=== PATIENT | female | born 1960 | race Caucasian/White ===

== ENCOUNTER 2016-09-30 10:46 | Day surgery (SDC) | payer OTHER ==
[~2016-09-30] VITALS: Ht 162.6 cm; Wt 65.8 kg
[~2016-09-30 10:46] MED LIST: 0.9% Sodium Chloride 1,000 ML IV PRN; META-1 PO; Sodium Chloride LOK Flush 10 mL Syringe IV PRN; VENL75CA PO; fentaNYL-PF 50 mCg/mL 2 mL Inj IVPUSH PRN
[2016-09-30 11:13] VITALS: BP 96/61; PULSE 73; RESP 14; O2SAT 99
[2016-09-30] MEDS ORDERED: OMEP20TA86 PO (11:34)
--- NOTE | 2016-09-30 12:39 | PCM.ENDEGD ---
EGD Date of Service: Sep 30, 2016 Physician Julian Henley MD Indication for Procedure Reflux Post Procedure Dx & Findings: Gastritis and esophagitis and bilious material in the stomach Procedure Esophagogastroduodenoscopy PROCEDURE IN DETAIL: The patient was placed in left lateral decubitus position. Bite block was placed. Scope lubricated, placed in posterior pharynx, passed through the cricopharyngeus and esophagus, slowly advanced the entire length of the gastric pouch, pylorus was identified, scope passed through the pylorus and descending portion of duodenum, withdrawn in the antrum, retroflexed upon itself for view of fundus and cardia. Scope was then withdrawn through the oropharynx. The esophagus appeared normal until the distal esophagus where we saw a linear ulcerations and erosions. The Z line was irregular consistent with esophagitis. This is probably a grade C. The stomach had significant bilious material which were all suctioned. Retroflexion was done. Stomach was easily inflated when deflated wheezing air. Evidence of redness and edema noted consistent with gastritis in the fundus cardia antrum body and to the pylorus. Biopsies are obtained. Advanced to distal duodenum. Duodenal mucosa showed healthy villous mucosa with normal appearing folds. Random biopsies were obtained. 5 samples obtained. Impression Grade C esophagitis Gastritis Bile in stomach Chronic diarrhea Recommendation Increase omeprazole 20 mg once a day to 20 mg twice a day. Await biopsies. Presedation Assessment Risks and Benefits Informed consent was obtained from the patient after all risks and benefits including but not limited to drug reaction, infection, pain, bleeding, perforation, as well as alternatives were discussed. Patient monitoring Continuous pulse oximetry, cardiac monitoring, blood pressure monitoring, IV access, and oxygen at 2L per nasal cannula. Periprocedural Fentanyl: Fentanyl 100mcg Incrementally Midazolam: Midazolam 5mg Incrementally Complications There were no periprocedural complications identified. Post Procedure Plan Post Procedure Recommendations 1. Restrict activities today. 2. Resume normal activities in the morning. 3. Resume medications. 4. GERD behavioral modification: - Avoid fatty, acidic, spicy, large meals - Do not lie down after meals - Do not eat or drink anything for at least 2 1/2 hours before going to bed at night - Discontinue tobacco and alcohol - Decrease or avoid caffeine - Avoid chocolate and mints - Decrease weight - Avoid aspirin and non steroidal anti-inflammatory agents (NSAID) such as Aleve, Advil, Mobic, Naproxen, Ibuprofen, etc 5. Add proton pump inhibitor. Take 30 minutes before 1st meal of the day. 6. Patient informed of normal post procedure side effects as bloating, drowsiness, blood streaking in the stool 7. If gastric biopsy reveal H.pylori, continue with appropriate treatment 8. If small bowel biopsy reveals celiac, continue with appropriate treatment 9. Please don't hesitate to call me with any questions Julian Henley MD Sep 30, 2016 12:39
--- NOTE | 2016-09-30 13:08 | PCM.ENDCOL ---
Colonoscopy Date of Service: Sep 30, 2016 Physician Julian Henley MD Indication for Procedure Father with colon cancer screening colonoscopy and diarrhea Post Procedure Dx & Findings: Hemorrhoids. Procedure Colonoscopy Prep adequate cecum 6 minutes Withdrawal 15 minutes PROCEDURE IN DETAIL: After unremarkable examination, Olympus video colonoscope was inserted patient' s anal canal was advanced to cecum. Further events the terminal ileum. We advanced about 8 cm into the terminal ileum. Scope was withdrawn systematically. The mucosa of the cecum, ascending, transverse, descending, sigmoid, rectal mucosa lined with whitish, pink, smooth, glistening, normal-appearing mucosa, normal fine branching, underlying vascularity, normal haustra. The patient tolerated procedure and was transported to observation area. Random biopsies are obtained from the cecum to the rectum due to the diarrhea. In the rectum retroflexion was done which showed hemorrhoids and anal canal was inspected carefully and hemorrhoids noted. Impression Normal TI Family history of colon cancer Random biopsies Hemorrhoids Recommendation Repeat colonoscopy 5 years Await biopsies Presedation Assessment Risks and Benefits Informed consent was obtained from the patient after all risks and benefits including but not limited to drug reaction, infection, pain, bleeding, perforation, as well as alternatives were discussed. Patient monitoring Continuous pulse oximetry, cardiac monitoring, blood pressure monitoring, IV access, and oxygen at 2L per nasal cannula. Complications There were no periprocedural complications identified. Post Procedure Plan Post Procedure Recommendations 1. Restrict activities today. 2. Resume normal activities in the morning. 3. Resume medications. 4. Patient informed of normal post procedure side effects as bloating, drowsiness, blood streaking in the stool. 5. average risk CRCS. If colon polyps come back as: -Hyperplastic- can repeat colonoscopy in 10 years -Tubular adenoma- repeat colonoscopy in 5 years -Tubulovillous/villous adenoma- repeat colonoscopy in 3 years -If any dysplasia- return to clinic as soon as possible 6. Please don't hesitate to call me with any questions. Julian Henley MD Sep 30, 2016 13:08
[2016-09-30 13:10] VITALS: BP 97/63; PULSE 63; RESP 12; O2SAT 100
[2016-09-30 13:20] VITALS: BP 98/61; PULSE 63; RESP 12; O2SAT 98
--- NOTE | 2016-10-01 14:02 | PATH ---
SURGICAL PATHOLOGY Attending Physician:Julian Henley M.D. CASE STATUS: Signed Out PATIENT NAME: CANDIE MAYER PID: [id number] : 1960 DATE COLLECTED:09/30/2016 22:18 SPECIMEN: 1: Duodenum, Biopsy 2: Gastric, Biopsy 3: Esophagus, Biopsy 4: Colon, Biopsy CLINICAL HISTORY: 1). DUODENUM BIOPSY 2). GASTRIC BIOPSY 3). DISTAL ESOPHAGUS BIOPSY 4). RANDOM COLON BIOPSY FINAL DIAGNOSIS: 1. Duodenum Biopsy: Changes consistent with chronic duodenitis with focal areas of foveolar metaplasia. Negative for evidence of celiac disease. Negative for dysplasia and malignancy. 2. Gastric Biopsies: Fragments of antral and fundic mucosa negative for significant inflammation. Negative for evidence of Helicobacter. Negative for intestinal metaplasia. Negative for dysplasia and malignancy. 3. Distal Esophagus Biopsy: Fragments of squamous mucosa and gastric cardia-type mucosa positive for specialized metaplasia of Young's type esophagus. Negative for dysplasia and malignancy. Eosinophils are not increased. 4. Random Colon Biopsies: Changes consistent with collagenous colitis. ICD10: K22.70 NOTE: Part [address] Wendy Chase who agrees with the diagnosis. GROSS DESCRIPTION: The specimen is received in four formalin filled containers labeled with the patient's name. 1). The specimen is sublabeled "duodenum" and consists of 3 portions of tissue which aggregate to 0.3 x 0.3 x 0.2 CM. Specimen is entirely submitted in cassette 1A. 2). The specimen is sublabeled "gastric" and consists of a 0.3 x 0.3 x 0.2 CM portion of tissue which is entirely submitted in cassette 2A. 3). The specimen is sublabeled "distal esophagus" and consists of a 0.3 x 0.3 x 0.2 CM portion of tissue which is entirely submitted in cassette 3A. 4). The specimen is sublabeled "random colon" and consists of multiple portions of tissue which aggregate to 0.3 x 0.3 x 0.3 CM. The specimen is entirely submitted in cassette 4A. 09/30/2016 [facility] ICD-9 CODES: CPT CODES: 1: 04869 2: 49062 3: 51018 4: 29869 Electronically Signed Out Jovan Woodard MD [facility] [address], [place] [address] Technical component performed at [facility], [address], [place], [address]
== END 2016-09-30 23:59 | disposition home or self-care (01) ==
LOC: END 10:46
PROVIDERS: ATTEND Internal Medicine
DX: Z12.11 Encounter for screening for malignant neoplasm of colon (principal); K52.831 Collagenous colitis; K64.8 Other hemorrhoids; Z80.0 Family history of malignant neoplasm of digestive organs; K22.70 Barrett's esophagus without dysplasia; K20.9 Esophagitis, unspecified; K29.80 Duodenitis without bleeding; K29.70 Gastritis, unspecified, without bleeding; K21.9 Gastro-esophageal reflux disease without esophagitis; R19.7 Diarrhea, unspecified; Z85.3 Personal history of malignant neoplasm of breast